=== PATIENT | male | born 1955 | race African-American/Black ===

== ENCOUNTER 2016-02-20 10:35 | Inpatient (IN) ==
[2016-02-20] MEDS ORDERED: METOPROLOL TARTRATE 5 MG/5 ML VIAL IV STA (10:47)
[2016-02-20] MEDS ORDERED: METOPROLOL TARTRATE 5 MG/5 ML VIAL IV ONE (10:47)
[2016-02-20] MEDS ORDERED: DILTIAZEM 50 MG/10 ML VIAL IV STA (10:56)
[2016-02-20] MEDS ORDERED: DILTIAZEM 50 MG/10 ML VIAL IV ONE (10:57)
[2016-02-20] MEDS ORDERED: DILTIAZEM 100 MG VIAL.ADD IV ONE (10:58)
[2016-02-20 11:01] LABS: Basophils # 0.1 10*3/uL (0.0-0.2); Basophils % 0.8 % (0.0-0.8); Eosinophils # 0.3 10*3/uL (0.0-0.87); Eosinophils % 3.1 % (0.00-10.9); Hematocrit 38.7 VOL% (42.0-52.0); Hemoglobin 12.9 GM/DL (14.0-18.0); Immature Granulocytes % 0.2 %; Immature Granulocytes Absolute 0.02 #; Lymphocytes # 4.3 10*3/uL (1.4-4.0); Lymphocytes % 48.9 % (21.2-54.2); Mean Corpuscular HGB Conc 33.3 GM/DL (32-36); Mean Corpuscular Hemoglobin 30 PG (27-34); Mean Corpuscular Volume 90.4 FL (87-102); Mean Platelet Volume 8.9 FL (9.6-12.0); Monocytes # 0.6 10*3/uL (0.11-0.8); Monocytes % 6.7 % (1.7-12.7); Neutrophils # 3.5 10*3/uL (1.4-7.4); Neutrophils % 40.3 % (38.7-73.9); Platelet Count 258 10*3/uL (130-400); Red Blood Count 4.28 10*6/uL (3.8-5.5); Red Cell Distribution Width 13.6 % (9.3-17.3); White Blood Count 8.7 10*3/uL (4.5-13.71)
[2016-02-20] MEDS: DILTIAZEM INJ 100 MG in SODIUM CHLORIDE 0.9% 100 ML IV SCH (11:05)
[2016-02-20 11:43] LABS: Blood Urea Nitrogen 9 MG/DL (7-18); Calcium 8.3 MG/DL (8.5-10.1); Free T4 (Free Thyroxine) 1.05 NG/DL (0.76-1.46); Glucose 155 MG/DL (74-106); Magnesium 1.7 MG/DL (1.8-2.4); Osmolality,Calculated 282.3 MOS/KG (273-304); Potassium 3.2 MMOL/L (3.5-5.1); Sodium 141 MMOL/L (136-145); Troponin I Only 0.045 NG/ML (0.00-0.045)
[2016-02-20] MEDS ORDERED: MAGNESIUM SULF RIDER 2 GM in PREMIX 1 EACH IV STA (11:45)
--- NOTE | 2016-02-20 11:51 | Emergency Department Note ---
Gabe Koch Brittany, am scribing for, and in the presence of, Ernst Linares MD 10 :53. Vijay Koch Hans, MD, personally performed the services described in this documentation, ascribed by Catherine Bernal in my presence, and it is both accurate and complete . Arrival - Arrival Chief Complaint: Arrhythmia/Palpitations ED Nursing Triage Note: c/o dizzy and increased heart rate Mode of Arrival: Stretcher Limitations: No Limitations Source: Patient, RN Notes Reviewed Time Seen by Provider: 02/20/16 10:40 - History of Present Illness HPI Narrative: Patient is a 60 y/o black male presenting to the ED by EMS with c/o dizziness, headache, and increased heart rate with an onset of this morning. Patient states that symptoms onset after eating a bologna sandwich this morning. He notes having some associated SOB, but denies having any chest pain, diaphoresis , abdominal pain, diarrhea, or bilateral leg swelling with this. In room patient 's heart rate is 188 beats per minute. Patient admits to being a current everyday smoker. He has no other complaint/pain. Patient has a past medical history of Prostate Problems. Review of System - Review of System 12 point system: reviewed and no additional remarkable complaints except as stated - Review of System Constitutional: Absent: diaphoresis Respiratory: Present: respiratory distress Cardiovascular: Present: palpitations. Absent: chest pain Gastrointestinal: Absent: abdominal pain, diarrhea Neurological: Present: other (dizziness) Medical,Surgical,& Family Hx - Medical History Genitourinary: History of: Prostate Problems - Social History Smoking Status: Unknown if ever smoked Frequency of Alcohol Use: Unknown Type of Drug Use: Unknown Exam Vital Signs: Vital Signs Temperature 98.0 F 02/20/16 10:40 Pulse Rate 191 H 02/20/16 10:40 Respiratory Rate 16 02/20/16 11:34 Blood Pressure 113/71 02/20/16 10:40 O2 Sat by Pulse Oximetry 97 02/20/16 10:40 - General General appearance: alert, in no apparent distress - Head Head exam: Present: atraumatic, normocephalic - Eye Eye exam: Present: PERRL, EOMI - ENT ENT exam: Present: mucous membranes moist, TM's normal bilaterally - Neck Neck exam: Present: full ROM, trachea midline. Absent: tenderness - Chest Chest inspection: Present: symmetric chest wall rise. Absent: tenderness - Respiratory Respiratory exam: Present: normal lung sounds bilaterally. Absent: rales, rhonchi, wheezes - Cardiovascular Cardiovascular exam: Present: normal rhythm, tachycardia, normal heart sounds. Absent: regular rate (irregular), murmur, rubs, gallop - Abdominal Exam Abdominal exam: Present: soft, normal bowel sounds. Absent: distention, tenderness - Extremities Exam Extremities exam: Present: full ROM. Absent: tenderness, pedal edema - Back Exam Back exam: Present: full ROM. Absent: tenderness - Neurological Exam Neurological exam: Present: alert, oriented X3, CN II-XII intact, normal gait, reflexes normal. Absent: motor sensory deficit - Psychiatric Psychiatric exam: Present: normal affect, normal mood - Skin Skin exam: Present: warm, dry, intact, normal color Course Course Narrative: This patient was evaluated with EKG, chest x-ray, and blood work which basically revealed some ST depressions on his RVR was in the 180s and it seemed to resolve on his 5-lead EKG on the monitor. His troponin was negative and his electrolytes demonstrated a slight hypokalemia and hypomagnesemia which we corrected in the ER. His white blood cell count was normal and his hemoglobin was also normal. We placed him on a Cardizem drip after 1 dose of Lopressor failed to resolve his RVR. I discussed his care with the hospitalist who agreed to come and see the patient for admission and we were actually able to turn off his Cardizem drip intermittently but it looks like he still in A. fib and a repeat EKG is pending. Results - Labs CBC & BMP: 02/20/16 10:55 02/20/16 10:55 Disposition Clinical Impression: Palpitations, Atrial fibrillation Case discussed with: patient Disposition: Still a Patient Condition: Guarded Instructions: Atrial Fibrillation (ED) Time of Disposition: 11:51
[2016-02-20] MEDS ORDERED: POTASSIUM CHLORIDE RIDER 100 ML IV ONE (12:05)
[2016-02-20] MEDS ORDERED: MAGNESIUM SULF RIDER 50 ML IV ONE (12:06)
--- NOTE | 2016-02-20 13:15 | XRay Report ---
Portable chest Date:[02/20/2016] Clinical history: Tachycardia Comparison: None Technique: Portable AP sitting chest Findings: The heart is minimally enlarged with calcification in the aortic knob. Calcified granulomata/nodes with minimal fluid in the right minor fissure. Unremarkable mediastinum with degenerative changes. Impression: Minimal cardiomegaly with evidence of old granulomatous disease. Minimal fluid in the right minor fissure. PROCEDURE INTERPRETED AT [facility] DEPARTMENT OF RADIOLOGY Final Report Signed by: Dr. Jeni Matthew
--- NOTE | 2016-02-20 13:36 | EKG Report ---
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
--- NOTE | 2016-02-20 13:50 | Hospitalist History & Physical ---
Assessment and Plan - Time spent with patient Time spent with patient: Greater than 30 minutes (due to assessment, plan and documentation) (1) New onset a-fib Status: Acute Assessment and plan: admit as inpt to telemetry Continue on Cardizem infusion consult cardiology routine labs and lipid panel in AM DVT prophylaxis potassium and MG replaced in ER PRN meds further plan and addendum to follow per Dr. Dobson Current Visit: Yes History of Present Illness Chief complaint: new onset Afib/RVR History of present illness: Mr. Degroot is a 60 year old male who presents to the Er today with palpitations , chest pain, dizziness and shortness of breath. He states shortly after he got up this morning he began to feel very bad and his heart was racing. He states he felt fine over the last few days, has not been sick. He was found to be in Afib on arrival to the ER with initial rate in the 150's. He was started on Cardizem infusion and rate is now controlled in 90s and he has converted to SR. He states he feels much better now. He denies every having afib before, denies previous medical history, denies surgical history. He does drink 2-3 beers daily , he states he does not think he will have DTs, educated him to watch for s/s. He also smokes about half a pack of cigarettes daily. Smoke marijuana once a week. At present he denies chest pain, fever, chills, cough, headache, shortness of breath, abdominal pain, n/v/d, dysuria or edema. Home Medications Medication Instructions Recorded Confirmed Type Tamsulosin [Flomax] 0.4 mg PO DAILY 02/20/16 02/20/16 History Allergies Allergy/AdvReac Type Severity Reaction Status Date / Time No Known Allergies Allergy Unverified 02/20/16 11:22 Medical,Surgical,& Family Hx - Medical History Genitourinary: History of: Prostate Problems - Social History Smoking Status: Unknown if ever smoked Frequency of Alcohol Use: Unknown Type of Drug Use: Unknown 12 point system: reviewed and no additional remarkable complaints except as stated Exam - Constitutional Vitals: Period Temp Pulse Resp BP Sys/Bae Pulse Ox Last 24 Hr 98.0 F-98.0 F 191-191 16-18 113-113/71-71 97 General appearance: no acute distress - Head Head exam: Present: normal inspection, normocephalic - Eye Eye exam: Present: EOMI. Absent: scleral icterus Pupils: Present: JOHNNIE, normal accommodation - ENT ENT exam: Present: normal exam, normal oropharynx - Neck Neck exam: Present: normal inspection. Absent: lymphadenopathy - Respiratory Respiratory exam: Present: clear to auscultation bilaterally. Absent: wheezes - Cardiovascular Cardiovascular exam: Present: regular rate and rhythm. Absent: tachycardia - GI/Abdominal GI/Abdominal exam: Present: normal bowel sounds, soft. Absent: tenderness - Extremities Exam Extremities exam: Present: normal inspection, full ROM. Absent: edema - Back Exam Back exam: Present: normal inspection. Absent: muscle spasm - Neurological Exam Neurological exam: Present: alert, oriented X3 - Psychiatric Psychiatric exam: Present: normal affect, normal mood - Skin Skin exam: Present: normal color, warm, dry Results - Labs CBC & BMP: 02/20/16 10:55 02/20/16 10:55 Lab Results: I have reviewed the past 24 hour labs
[2016-02-20] MEDS: POTASSIUM CHLORIDE RIDER 10 MEQ in PREMIX 1 EACH IV SCH ×7 (15:40→23:28)
[2016-02-21 01:09] LABS: Basophils # 0.1 10*3/uL (0.0-0.2); Basophils % 0.7 % (0.0-0.8); Eosinophils # 0.3 10*3/uL (0.0-0.87); Eosinophils % 3.7 % (0.00-10.9); Hematocrit 39.3 VOL% (42.0-52.0); Immature Granulocytes % 0.1 %; Immature Granulocytes Absolute 0.01 #; Lymphocytes # 4.6 10*3/uL (1.4-4.0); Lymphocytes % 53.1 % (21.2-54.2); Mean Corpuscular HGB Conc 33.1 GM/DL (32-36); Mean Corpuscular Hemoglobin 30 PG (27-34); Mean Corpuscular Volume 89.1 FL (87-102); Mean Platelet Volume 9.7 FL (9.6-12.0); Monocytes # 0.6 10*3/uL (0.11-0.8); Monocytes % 6.9 % (1.7-12.7); Neutrophils # 3.1 10*3/uL (1.4-7.4); Neutrophils % 35.5 % (38.7-73.9); Platelet Count 266 10*3/uL (130-400); Red Blood Count 4.41 10*6/uL (3.8-5.5); Red Cell Distribution Width 13.4 % (9.3-17.3); White Blood Count 8.7 10*3/uL (4.5-13.71)
[2016-02-21 01:40] LABS: Calcium 8.5 MG/DL (8.5-10.1); Osmolality,Calculated 280.1 MOS/KG (273-304); Potassium 4.1 MMOL/L (3.5-5.1); Risk Ratio 3.36; VLDL CHOLESTEROL 22.4 MG/DL
[2016-02-21 04:52] LABS: Band Neutrophils 3 % (0-10); Eosinophils 2 % (0-10); Hypochromasia 2+; Lymphocytes 51 % (20-55); Platelet Estimate Normal; Segmented Neutrophils 37 % (50-85); Total Cells Counted 100
--- NOTE | 2016-02-21 06:52 | EKG Report ---
Stationary ECG Study [facility] ER Test Date: 02/20/2016 11:52:22 AM Pat Name: THEE GUERRIER Department: Room: 281 Gender: M University Professor: LEW ZULETA RN : 1955 Requested by: Ernst Linares Order Number: [id number] Reading MD: YOGESH ARRIOLA Intervals [place] Rate: 93 P: 72 VT: 131 QRS: 27 QRSD: 88 T: 33 QT: 362 QTc: 412 Interpretive Statements SINUS RHYTHM Electronically Signed On 02-21-16 07:07:47 AWNING FINISHER by YOGESH ARRIOLA [email or web address]
--- NOTE | 2016-02-21 11:24 | ECHO Report ---
Sabino Degroot Exam Date: 02/21/2016 11:02 Referring Physician: Technologist: Age: 60 Ht (in): Wt (lb): Gender: M Exam Location: [facility] Echo Indications: BP: / HR: Rhythm: Sinus Technical Quality: IMPRESSIONS Left ventricular ejection fraction appears to be 45-50%. Mild left atrial enlargement. Mild mitral valve leaflet thickening with trace mitral regurgitation. Trace tricuspid regurgitation. MEASUREMENTS (Male / Female) Normal Values 2D ECHO LV Diastolic Diameter PLAX 4.4 cm 4.2 - 5.9 / 3.9 - 5.3 cm LV Systolic Diameter PLAX 2.8 cm LV Fractional Shortening PLAX 36.4 % IVS Diastolic Thickness 1.1 cm 0.6 - 1.0 / 0.6 - 0.9 cm LVPW Diastolic Thickness 1.1 cm 0.6 - 1.0 / 0.6 - 0.9 cm RV Internal Dim ED PLAX 3.0 cm Aortic Root Diameter 3.3 cm LA Systolic Diameter LX 3.1 cm 3.0 - 4.0 / 2.7 - 3.8 cm DOPPLER TR Peak Velocity 254.0 cm/s TR Peak Gradient 25.8 mmHg FINDINGS Left Ventricle Normal left ventricular wall thickness and size. Left ventricular ejection fraction appears to be 45-50%. Right Ventricle Normal size and function. Right Atrium Normal size and function. Left Atrium Mild left atrial enlargement. Mitral Valve Mild mitral valve leaflet thickening with trace mitral regurgitation. Aortic Valve Aortic valve appears to be structurally normal. Tricuspid Valve Structurally normal with trace tricuspid regurgitation. Pulmonic Valve Pericardium No evidence of pericardial effusion or other abnormality. Aorta Aorta appears normal. David Weston (Electronically Signed) Final Date: 21 February 2016 11:23
--- NOTE | 2016-02-21 11:37 | Cardiology Consult Note ---
Assessment and Plan (1) New onset a-fib Status: Acute Assessment and plan: The patient has converted back to sinus rhythm. His potassium was low on arrival which is likely a factor. I will review and adjust his medications to try to maintain sinus rhythm. Current Visit: Yes (2) Abnormal cardiac enzyme level Status: Acute Assessment and plan: The patient has a slight bump in his cardiac enzymes, which may simply be a supply demand ischemia from having A. fib. However, he doesn't have any previous known history of coronary artery disease, and his left ventricular ejection fraction appears mildly reduced on echo. I really think he would be best served by cardiac catheterization for definitive coronary artery assessment. I discussed the risks, alternatives, and benefits with the patient today who understands and wishes to proceed. I'm going to schedule this test for Tuesday. Current Visit: Yes (3) Cardiomyopathy Status: Acute Current Visit: Yes (4) Tobacco abuse Status: Acute Current Visit: Yes (5) Palpitations Status: Acute Current Visit: Yes History of Present Illness - Consult Narrative History of present illness: Mr. Degroot is a 60 year old male who denies any significant past medical history. He came to the hospital after having acute onset of severe palpitations. This was associated with some mild dyspnea. He felt somewhat lightheaded. There were no particular exacerbating or alleviating factors. He denies any previous history of palpitations or tachycardia. He denies any previous cardiac history. He did not experience any chest pain or radiation of symptoms. He does not have any diaphoresis, or other associated symptoms. When he got to the emergency room he was found to be in atrial fibrillation with rapid ventricular response heart rates in the 150s. He was started on a diltiazem infusion which got his rate controlled and he subsequently converted back to normal sinus rhythm. He is essentially feeling back to normal at this time. He denies any fever, chills, or cough. He has no orthopnea, PND, or peripheral edema. He has no previous history of coronary artery disease, congestive heart failure, or arrhythmia. His only real medical problem is of prostate hypertrophy. He was being treated with an antibiotic and is also on Flomax for his prostate. The patient does have a history of smoking. He also drinks several drinks a day. CC: Sabrina Dobson MD - Home Medications and Allergies Home Medications: Home Medications Medication Instructions Recorded Confirmed Type Tamsulosin [Flomax] 0.4 mg PO DAILY 02/20/16 02/20/16 History Allergies/Adverse Reactions: Allergies Allergy/AdvReac Type Severity Reaction Status Date / Time No Known Allergies Allergy Unverified 02/20/16 11:22 12 point system: reviewed and no additional remarkable complaints except as stated Medical,Surgical,& Family Hx - Medical History Cardio: History of: Cardiac Dysrhythmia (afib) Genitourinary: History of: Prostate Problems - Surgical History Orthopedic Surgeries: Surgical HX of;: Orthopedic Surgery (ORIF BL legs) - Family History Family History: Reports;: Family Heart Disease, Family Hypertension - Social History Smoking Status: Unknown if ever smoked Frequency of Alcohol Use: Unknown Type of Drug Use: Unknown Physical Examination Vital Signs Temp Pulse Resp BP Pulse Ox 98.0 F 191 H 18 113/71 97 02/20/16 10:40 02/20/16 10:40 02/20/16 10:40 02/20/16 10:40 02/20/16 10:40 Other: General: Appears well developed, well nourished, no apparent distress HEENT: Normocephalic, atraumatic Neck: Supple Neck, Midline Trachea, No Bruit, No JVD Cardiac: Reg Rate and Rhythm, No Murmur, no gallop, no rub Lungs: Clear to auscultation, No Wheeze, Rales, Rhonchi Neuro: Cranial Nerve 2-12 Intact, Motor Function Grossly Intact Abdomen: Soft, Active Bowel Sounds, No Masses, No Pulsations/Bruits Skin: Normal color, no rash Extremities: No Clubbing, No Cyanosis, No Edema, Normal Upper Extr. Pulses Musculoskeletal: No acute abnormality noted Psychiatric: The patient does not appear to be anxious or depressed Result/EKG - Labs CBC & BMP: 02/21/16 00:15 02/21/16 00:15 Lab Results: I have reviewed the past 24 hour labs Labs: Laboratory Results - last 24 hr 02/20/16 02/21/16 02/21/16 18:04 00:15 00:15 WBC 8.7 RBC 4.41 Hgb 13.0 L Hct 39.3 L MCV 89.1 MCH 30 MCHC 33.1 RDW 13.4 Plt Count 266 MPV 9.7 Neut % (Auto) 35.5 L Lymph % (Auto) 53.1 [place] % (Auto) 6.9 Eos % (Auto) 3.7 Baso % (Auto) 0.7 Neut # (Auto) 3.1 Lymph # (Auto) 4.6 H [place] # (Auto) 0.6 Eos # (Auto) 0.3 Baso # (Auto) 0.1 Total Counted 100 Immature Gran % 0.1 Nucleated RBC % 0.0 Immature Gran # 0.01 Segmented Neutrophils 37 L Band Neutrophils 3 Lymphocytes 51 Monocytes 6 Eosinophils 2 Basophils 1.0 H Nucleated RBCs # 0.00 Platelet Estimate Normal Hypochromasia 2+ Sodium Potassium Chloride Carbon Dioxide Anion Gap BUN Creatinine GFR Calculation BUN/Creatinine Ratio Glucose Calculated Osmolality Calcium Troponin I 0.722 H D 0.754 H Triglycerides Cholesterol LDL Cholesterol VLDL Cholesterol HDL Cholesterol Heart Disease Risk Ratio 02/21/16 02/21/16 00:15 02:38 WBC RBC Hgb Hct MCV MCH MCHC RDW Plt Count MPV Neut % (Auto) Lymph % (Auto) [place] % (Auto) Eos % (Auto) Baso % (Auto) Neut # (Auto) Lymph # (Auto) [place] # (Auto) Eos # (Auto) Baso # (Auto) Total Counted Immature Gran % Nucleated RBC % Immature Gran # Segmented Neutrophils Band Neutrophils Lymphocytes Monocytes Eosinophils Basophils Nucleated RBCs # Platelet Estimate Hypochromasia Sodium 142 Potassium 4.1 Chloride 108 H Carbon Dioxide 25 Anion Gap 13.1 BUN 7 Creatinine 0.90 GFR Calculation 116 BUN/Creatinine Ratio 7.00 Glucose 97 Calculated Osmolality 280.1 Calcium 8.5 Troponin I 0.768 H Triglycerides 112 Cholesterol 185 LDL Cholesterol 113.0 VLDL Cholesterol 22.4 HDL Cholesterol 55 Heart Disease Risk Ratio 3.36 - EKG EKG results: interpreted by me Specialty Discharge - Follow Up or Referrals
[2016-02-21] MEDS ORDERED: MAGNESIUM SULF RIDER 2 GM in PREMIX 1 EACH IV PRN (11:40)
[2016-02-21] MEDS ORDERED: POTASSIUM CHLORIDE RIDER 10 MEQ in PREMIX 1 EACH IV PRN (11:40)
[2016-02-21] MEDS: DILTIAZEM CD 120 MG CAPSULE PO SCH (11:56)
[2016-02-21] MEDS: ASPIRIN CHEW 81 MG TABLET PO SCH (11:56)
[2016-02-21] MEDS: ASCORBIC ACID 500 MG TABLET PO SCH ×2 (11:56→20:51)
[2016-02-21] MEDS: DILTIAZEM INJ 100 MG in SODIUM CHLORIDE 0.9% 100 ML IV SCH (12:00)
[2016-02-21] MEDS: NICOTINE 14 MG/24 HR PATCH TRANSDERM SCH (15:16)
--- NOTE | 2016-02-21 16:02 | Hospitalist Progress Note ---
Assessment and Plan - Time spent with patient Time spent with patient: Greater than 30 minutes (1) Abnormal cardiac enzyme level Status: Acute Assessment and plan: Troponins elevated, in light of chest pain and cardiac risk factors, patient will be catheterized on tuesday. Current Visit: Yes (2) New onset a-fib Status: Acute Assessment and plan: Continue current management. Current Visit: Yes (3) Tobacco abuse Status: Acute Assessment and plan: Tobacco patch. Current Visit: Yes (4) Cardiomyopathy Status: Acute Assessment and plan: Echo revealed EF 45-50%. Stable. Current Visit: Yes Hospitalist: Subjective Interval history: No complaints, no overnight events. Denies any chest pain currently. Exam - Constitutional Vitals: Period Temp Pulse Resp BP Sys/Bae Pulse Ox Last 24 Hr 97 F-98.5 F 59-77 18-20 126-147/81-98 98-100 General appearance: no acute distress - Head Head exam: Present: normocephalic, atraumatic - Eye Eye exam: Present: EOMI Pupils: Present: JOHNNIE - ENT ENT exam: Present: normal exam - Neck Neck exam: Present: normal inspection - Respiratory Respiratory exam: Present: clear to auscultation bilaterally. Absent: rhonchi, wheezes - Cardiovascular Cardiovascular exam: Present: regular rate and rhythm. Absent: gallop, rubs, systolic murmur - GI/Abdominal GI/Abdominal exam: Present: normal bowel sounds, soft. Absent: distended, firm , guarding, tenderness, rebound - Extremities Exam Extremities exam: Present: normal inspection. Absent: calf tenderness, edema Results - Labs CBC & BMP: 02/21/16 00:15 02/21/16 00:15 Lab Results: I have reviewed the past 24 hour labs Specialty Discharge - Follow Up or Referrals
[2016-02-22] MEDS: ASPIRIN CHEW 81 MG TABLET PO SCH (09:04)
[2016-02-22] MEDS: ASCORBIC ACID 500 MG TABLET PO SCH ×2 (09:06→20:41)
[2016-02-22] MEDS: DILTIAZEM CD 120 MG CAPSULE PO SCH (09:07)
[2016-02-22] MEDS: NICOTINE 14 MG/24 HR PATCH TRANSDERM SCH (09:07)
--- NOTE | 2016-02-22 10:28 | Cardiology Progress Note ---
Assessment and Plan (1) New onset a-fib Status: Acute Assessment and plan: The patient has converted back to sinus rhythm. His potassium was low on arrival which is likely a factor. I have adjusted his medicines to try to maintain sinus rhythm. Current Visit: Yes (2) Abnormal cardiac enzyme level Status: Acute Assessment and plan: The patient has a slight bump in his cardiac enzymes, which may simply be a supply demand ischemia from having A. fib. However, he doesn't have any previous known history of coronary artery disease, and his left ventricular ejection fraction appears mildly reduced on echo. I really think he would be best served by cardiac catheterization for definitive coronary artery assessment. I discussed the risks, alternatives, and benefits with the patient who understands and wishes to proceed. The heart cath is scheduled tomorrow. Current Visit: Yes (3) Cardiomyopathy Status: Acute Current Visit: Yes (4) Tobacco abuse Status: Acute Current Visit: Yes (5) Palpitations Status: Acute Current Visit: Yes Cardiology - PN: Subj Interval history: The patient is feeling well this morning. He has not had any further chest pain symptoms. He remains in normal sinus rhythm. He has no palpitations orthopnea or PND. We once again discussed cardiac catheterization which is planned for tomorrow morning. He is still agreeable. Current Medications Ascorbic Acid (Vitamin C Tab) 1,000 mg PO BID [facility] Last Admin: 02/22/16 09:06 Dose: 1,000 mg Aspirin () 81 mg PO DAILY [facility] Last Admin: 02/22/16 09:04 Dose: 81 mg Diazepam (Valium Tab) 5 mg PO PREOP ONE Stop: 02/23/16 06:01 Diltiazem HCl (Cardizem Cd) 120 mg PO DAILY [facility] Last Admin: 02/22/16 09:07 Dose: 120 mg Diphenhydramine HCl (Benadryl Cap) 50 mg PO PREOP ONE Stop: 02/23/16 06:01 Diltiazem HCl 100 mg/ Sodium (Chloride) 100 mls @ 5 mls/hr IV TITRATE KIRSTIE; 5 MG /HR PRN Reason: Protocol Last Admin: 02/21/16 12:00 Dose: Not Given Magnesium Sulfate 2 gm/ Premix 50 mls @ 25 mls/hr IV ONCE PRN PRN Reason: Magnesium less than 1.8 Potassium Chloride 10 meq/ (Premix) 100 mls @ 100 mls/hr IV Q1H PRN PRN Reason: Potassium less than 3.5 Nicotine (Nicoderm Cq 14) 1 patch TRANSDERM DAILY KIRSTIE Last Admin: 02/22/16 09:07 Dose: 1 patch Exam (Progress Note) - Constitutional Vitals: Period Temp Pulse Resp BP Sys/Bae Pulse Ox Last 24 Hr 97 F-98.5 F 59-86 16-20 125-147/84-99 98-100 Exam: General: Appears well developed, well nourished, no apparent distress HEENT: Normocephalic, atraumatic Neck: Supple Neck, Midline Trachea, No Bruit, No JVD Cardiac: Reg Rate and Rhythm, No Murmur, no gallop, no rub Lungs: Clear to auscultation, No Wheeze, Rales, Rhonchi Neuro: Cranial Nerve 2-12 Intact, Motor Function Grossly Intact Abdomen: Soft, Active Bowel Sounds, No Masses, No Pulsations/Bruits Skin: Normal color, no rash Extremities: No Clubbing, No Cyanosis, No Edema, Normal Upper Extr. Pulses Musculoskeletal: No acute abnormality noted Psychiatric: The patient does not appear to be anxious or depressed Result/EKG - Labs CBC & BMP: 02/21/16 00:15 02/21/16 00:15 Lab Results: I have reviewed the past 24 hour labs - EKG EKG results: interpreted by me Specialty Discharge - Follow Up or Referrals
[2016-02-22] MEDS: DILTIAZEM INJ 100 MG in SODIUM CHLORIDE 0.9% 100 ML IV SCH (13:22)
--- NOTE | 2016-02-22 14:14 | Hospitalist Progress Note ---
Assessment and Plan - Time spent with patient Time spent with patient: Greater than 30 minutes (1) Abnormal cardiac enzyme level Status: Acute Assessment and plan: Troponins elevated, in light of chest pain and cardiac risk factors, patient will be catheterized on tuesday. Current Visit: Yes (2) New onset a-fib Status: Acute Assessment and plan: Continue current management. Current Visit: Yes (3) Tobacco abuse Status: Acute Assessment and plan: Tobacco patch. Current Visit: Yes (4) Cardiomyopathy Status: Acute Assessment and plan: Echo revealed EF 45-50%. Stable. Current Visit: Yes Hospitalist: Subjective Interval history: No complaints, no overnight events. Denies chest pain. Exam - Constitutional Vitals: Period Temp Pulse Resp BP Sys/Bae Pulse Ox Last 24 Hr 97 F-98.6 F 64-86 16-20 125-142/84-99 98-100 General appearance: no acute distress - Head Head exam: Present: normocephalic, atraumatic - Eye Eye exam: Present: EOMI Pupils: Present: JOHNNIE - ENT ENT exam: Present: normal exam - Neck Neck exam: Present: normal inspection - Respiratory Respiratory exam: Present: clear to auscultation bilaterally. Absent: rhonchi, wheezes - Cardiovascular Cardiovascular exam: Present: regular rate and rhythm. Absent: gallop, rubs, systolic murmur - GI/Abdominal GI/Abdominal exam: Present: normal bowel sounds, soft. Absent: distended, firm , guarding, tenderness, rebound - Extremities Exam Extremities exam: Present: normal inspection. Absent: calf tenderness, edema Results - Labs CBC & BMP: 02/21/16 00:15 02/21/16 00:15 Lab Results: I have reviewed the past 24 hour labs Specialty Discharge - Follow Up or Referrals
[2016-02-23 05:55] LABS: Basophils % 0.6 % (0.0-0.8); Eosinophils # 0.2 10*3/uL (0.0-0.87); Eosinophils % 3.2 % (0.00-10.9); Hematocrit 42.1 VOL% (42.0-52.0); Hemoglobin 13.8 GM/DL (14.0-18.0); Immature Granulocytes % 0.3 %; Immature Granulocytes Absolute 0.02 #; Lymphocytes % 55.2 % (21.2-54.2); Mean Corpuscular HGB Conc 32.8 GM/DL (32-36); Mean Corpuscular Hemoglobin 29 PG (27-34); Mean Corpuscular Volume 89.8 FL (87-102); Mean Platelet Volume 9.7 FL (9.6-12.0); Monocytes # 0.6 10*3/uL (0.11-0.8); Monocytes % 7.6 % (1.7-12.7); Neutrophils # 2.4 10*3/uL (1.4-7.4); Neutrophils % 33.1 % (38.7-73.9); Platelet Count 281 10*3/uL (130-400); Red Blood Count 4.69 10*6/uL (3.8-5.5); Red Cell Distribution Width 13.2 % (9.3-17.3); White Blood Count 7.2 10*3/uL (4.5-13.71)
[2016-02-23] MEDS ORDERED: DIAZEPAM 5 MG TABLET PO ONE (06:00)
[2016-02-23] MEDS ORDERED: diphenhydrAMINE CAP 25 MG CAPSULE PO ONE (06:00)
[2016-02-23 06:17] LABS: Calcium 9.1 MG/DL (8.5-10.1); Osmolality,Calculated 284.8 MOS/KG (273-304); Potassium 4.1 MMOL/L (3.5-5.1)
[2016-02-23 06:38] LABS: Eosinophils 2 % (0-10); Lymphocytes 59 % (20-55); Platelet Estimate Normal; Segmented Neutrophils 32 % (50-85); Total Cells Counted 100
[2016-02-23 06:39] LABS: Hypochromasia 1+
[2016-02-23] MEDS: DILTIAZEM CD 120 MG CAPSULE PO SCH (09:05)
[2016-02-23] MEDS: ASCORBIC ACID 500 MG TABLET PO SCH (09:05)
[2016-02-23] MEDS: ASPIRIN CHEW 81 MG TABLET PO SCH (09:06)
[2016-02-23] MEDS: NICOTINE 14 MG/24 HR PATCH TRANSDERM SCH (09:07)
[2016-02-23] MEDS ORDERED: HEPARIN/NACL 0.9% 2 UNITS/ML 1,000 ML IV ONE (09:12)
[2016-02-23] MEDS ORDERED: LIDOCAINE 1% 20 ML VIAL ONE (09:12)
[2016-02-23] MEDS ORDERED: HYDROmorphone 2 MG/1 ML VIAL ONE (09:41)
[2016-02-23] MEDS ORDERED: MIDAZOLAM 2 MG/2 ML VIAL ONE (09:41)
[2016-02-23] MEDS ORDERED: NITROGLYCERIN DRIP 50 MG/250 ML BOTTLE IV ONE (09:49)
[2016-02-23] MEDS ORDERED: VERAPAMIL 5 MG/2 ML VIAL ONE (09:50)
[2016-02-23] MEDS ORDERED: ENOXAPARIN 30 MG/0.3 ML SYRINGE ONE (10:00)
--- NOTE | 2016-02-23 10:21 | Cardiac Catheterization ---
Date of Procedure:: 02/23/16 Procedure: CLINICAL HISTORY: Please see the H&P. The patient presented with atrial fibrillation with rapid ventricular response and also had mildly abnormal cardiac enzymes. He is undergoing cardiac catheterization for definitive coronary artery assessment and possible revascularization. PROCEDURES PERFORMED: 1. Right radial percutaneous arteriotomy 2. Left heart catheterization 3. Resting hemodynamics 4. Left ventriculography. 5. Coronary arteriography 6. Hemoband placement DESCRIPTION OF PROCEDURE: After obtaining informed consent, the patient was taken to the lab head, prepped and draped in the usual sterile manner. We accessed the right radial artery using modified Seldinger technique in the usual fashion. We placed a 6-Malay slim sheath without difficulty. We then used a Tig catheter to engage the right coronary and left main coronary arteries to perform angiography in multiple orthogonal views. There were no problems or complications during the procedure. We then used an angled pigtail catheter to perform a left heart catheterization with left ventriculogram and pressure measurement in the usual fashion. After removing the catheter, we placed a HemoBand and removed the sheath without difficulty. There were no problems during the case. HEMODYNAMICS: Please see the accompanying data sheet. CORONARIES: The left main coronary artery is a trifurcates into the left anterior descending left circumflex flex, and ramus intermedius branches. The left main coronary artery is angiographically free of significant obstructive disease. The Ramus intermedius is a small caliber vessel which courses over the anterolateral wall. It is angiographically free of significant obstructive disease. The left circumflex coronary artery is a moderate size vessel which gives off a to large obtuse marginal branch. There are diffuse luminal irregularities of up to 40% in the left circumflex system but this does not appear to be high- grade/flow limiting. The left anterior descending is a large-caliber vessel which gives off 2 moderate-sized diagonal branches. There is some mild luminal irregularities in left anterior descending artery but this does not appear to be flow limiting. The second diagonal branch has a long area of around 50% stenosis in its midsegment. The right coronary artery is a moderate size vessel which gives off the posterior descending artery and a posterolateral system. The proximal portion of the vessel is quite tortuous. There are diffuse luminal irregularities throughout the right coronary artery with a maximal stenosis of around 50% in the proximal vessel. However, none of this appears to be flow limiting. LEFT VENTRICULOGRAPHY: Left ventriculogram shows left ventricular ejection fraction of approximately 55-60% with normal regional wall motion. IMPRESSION: 1. Mild nonobstructive coronary artery disease as described above. 2. Preserved left ventricular systolic function. PLAN: I don't see any high-grade disease in need of revascularization at this time. I think the patient slight cardiac enzyme bump was related to his prolonged A. fib with RVR. At this point, I think we would manage him with medical therapy and rate/rhythm control. From my standpoint he could be discharged home later today. I would like to follow-up with him in a week or 2. Anesthesia: minimal conscious sedation Surgeon / Physician: David Weston Estimated blood loss: minimal Condition: stable Disposition: floor - Medications / Follow-up
--- NOTE | 2016-02-23 10:24 | Cardiology Progress Note ---
Assessment and Plan (1) New onset a-fib Status: Acute Assessment and plan: The patient has converted back to sinus rhythm. His potassium was low on arrival which is likely a factor. I have adjusted his medicines to try to maintain sinus rhythm. From my standpoint, he could be discharged home on his current medical regimen. I would like to follow-up with him in a week or 2. Current Visit: Yes (2) Abnormal cardiac enzyme level Status: Acute Assessment and plan: The patient has a slight bump in his cardiac enzymes, which appears to be secondary to a supply demand ischemia from having A. fib with rapid ventricular response. Cardiac catheterization does not demonstrate any high-grade coronary artery disease in need of revascularization, though he does have some mild nonobstructive disease which we can manage medically. I think he can be discharged home later today with outpatient management. Current Visit: Yes (3) Tobacco abuse Status: Acute Assessment and plan: Smoking cessation was addressed during his hospital stay. Current Visit: Yes Cardiology - PN: Subj Interval history: The patient did well overnight. There have been no further arrhythmias. He has no cardiac complaints today. We took him to cardiac catheterization today. This showed some mild nonobstructive coronary artery disease. His left ventricular systolic function was normal. I think his mild and cardiac enzymes was secondary to the A. fib with RVR. For now I think his best treatment option is medical management and rate/rhythm control. Current Medications Ascorbic Acid (Vitamin C Tab) 1,000 mg PO BID [facility] Last Admin: 02/23/16 09:05 Dose: 1,000 mg Aspirin () 81 mg PO DAILY [facility] Last Admin: 02/23/16 09:06 Dose: 81 mg Diltiazem HCl (Cardizem Cd) 120 mg PO DAILY [facility] Last Admin: 02/23/16 09:05 Dose: 120 mg Diltiazem HCl 100 mg/ Sodium (Chloride) 100 mls @ 5 mls/hr IV TITRATE KIRSTIE; 5 MG /HR PRN Reason: Protocol Last Admin: 02/22/16 13:22 Dose: Not Given Magnesium Sulfate 2 gm/ Premix 50 mls @ 25 mls/hr IV ONCE PRN PRN Reason: Magnesium less than 1.8 Potassium Chloride 10 meq/ (Premix) 100 mls @ 100 mls/hr IV Q1H PRN PRN Reason: Potassium less than 3.5 Nicotine (Nicoderm Cq 14) 1 patch TRANSDERM DAILY KIRSTIE Last Admin: 02/23/16 09:07 Dose: 1 patch Exam (Progress Note) - Constitutional Vitals: Period Temp Pulse Resp BP Sys/Bae Pulse Ox Last 24 Hr 97 F-98.6 F 65-80 18-20 127-138/86-94 92-99 Exam: General: Appears well developed, well nourished, no apparent distress HEENT: Normocephalic, atraumatic Neck: Supple Neck, Midline Trachea, No Bruit, No JVD Cardiac: Reg Rate and Rhythm, No Murmur, no gallop, no rub Lungs: Clear to auscultation, No Wheeze, Rales, Rhonchi Neuro: Cranial Nerve 2-12 Intact, Motor Function Grossly Intact Abdomen: Soft, Active Bowel Sounds, No Masses, No Pulsations/Bruits Skin: Normal color, no rash Extremities: No Clubbing, No Cyanosis, No Edema, Normal Upper Extr. Pulses Musculoskeletal: No acute abnormality noted Psychiatric: The patient does not appear to be anxious or depressed Result/EKG - Labs CBC & BMP: 02/23/16 05:02 02/23/16 05:02 Lab Results: I have reviewed the past 24 hour labs Labs: Laboratory Results - last 24 hr 02/23/16 02/23/16 05:02 05:02 WBC 7.2 RBC 4.69 Hgb 13.8 L Hct 42.1 MCV 89.8 MCH 29 MCHC 32.8 RDW 13.2 Plt Count 281 MPV 9.7 Neut % (Auto) 33.1 L Lymph % (Auto) 55.2 H [place] % (Auto) 7.6 Eos % (Auto) 3.2 Baso % (Auto) 0.6 Neut # (Auto) 2.4 Lymph # (Auto) 4.0 [place] # (Auto) 0.6 Eos # (Auto) 0.2 Baso # (Auto) 0.0 Total Counted 100 Immature Gran % 0.3 Nucleated RBC % 0.0 Immature Gran # 0.02 Segmented Neutrophils 32 L Lymphocytes 59 H Monocytes 7 Eosinophils 2 Nucleated RBCs # 0.00 Platelet Estimate Normal Hypochromasia 1+ Sodium 144 Potassium 4.1 Chloride 110 H Carbon Dioxide 24 Anion Gap 14.1 BUN 9 Creatinine 0.80 GFR Calculation 121 BUN/Creatinine Ratio 11.00 Glucose 97 Calculated Osmolality 284.8 Calcium 9.1 - EKG EKG results: interpreted by me Specialty Discharge - Follow Up or Referrals
[2016-02-23] MEDS: DILTIAZEM INJ 100 MG in SODIUM CHLORIDE 0.9% 100 ML IV SCH (10:53)
[2016-02-23] MEDS ORDERED: SODIUM CHLORIDE 0.9% 1,000 ML IV SCH (11:00)
--- NOTE | 2016-02-23 13:28 | Discharge Summary ---
Hospital Course - Hospital Course Hospital Course: Please see H&P for details surrounding admission. Coronary artery disease: Troponins were noted to be elevated at 0.045 2.7-2. He was taken to the [facility] and nonobstructive coronary artery disease was identified. Patient will be initiated on an aspirin and anti-cholesterol medication. Atrial fibrillation with RVR: Patient was managed with IV medications and switched to oral diltiazem. He'll be discharged with diltiazem and aspirin and will follow up with cardiology in 1-2 weeks. Hyperlipidemia: LDL was measured to be 113 patient will be started on Lipitor and continue this at discharge. - Time spent with patient Time with patient DS: Greater than 30 minutes Diagnosis - Discharge Diagnosis (1) Abnormal cardiac enzyme level Status: Acute (2) New onset a-fib Status: Acute (3) Tobacco abuse Status: Acute (4) Cardiomyopathy Status: Acute Specialty Discharge - Follow Up or Referrals Discharge Plan - Discharge Data Disposition: Disch To Home/Self Care Condition at Discharge: Stable Discharge Diet: heart healthy, low fat, low cholesterol - Discharge Medications New Aspirin Chew Tab 81 mg PO DAILY #30 tablet Diltiazem Cd Cap [Cardizem CD] 120 mg PO DAILY #30 capsule Atorvastatin [Lipitor] 20 mg PO DAILY #30 tablet Nicotine 14 mg/24 Hr Patch [Nicoderm CQ 14 mg/24 hr Patch] 1 patch TRANSDERM DAILY #30 patch Continue Ciprofloxacin Tab [Cipro Tab] 500 mg PO BID W/MEALS Tamsulosin [Flomax] 0.4 mg PO DAILY metroNIDAZOLE [Metronidazole Cap/Tab] 500 mg PO TID - Follow Up or Referral - Forms/Instructions Instructions: Atrial Fibrillation (ED) Exam - Constitutional Vitals: Period Temp Pulse Resp BP Sys/Bae Pulse Ox Last 24 Hr 97 F-98.5 F 65-76 18-20 103-149/76-108 92-99 General appearance: normal weight, no acute distress - Head Head exam: Present: normal inspection, normocephalic, atraumatic - Eye Eye exam: Present: EOMI Pupils: Present: JOHNNIE - ENT ENT exam: Present: normal exam - Neck Neck exam: Present: normal inspection - Respiratory Respiratory exam: Present: clear to auscultation bilaterally - Cardiovascular Cardiovascular exam: Present: regular rate and rhythm - GI/Abdominal GI/Abdominal exam: Present: normal bowel sounds - Extremities Exam Extremities exam: Present: normal inspection Discharge Results Procedures and tests throughout hospitalization: Pending Orders 02/23/16 06:51 CL heart Routine Labs on day of discharge: Labs from last 24 hours 02/23/16 02/23/16 05:02 05:02 WBC 7.2 RBC 4.69 Hgb 13.8 L Hct 42.1 MCV 89.8 MCH 29 MCHC 32.8 RDW 13.2 Plt Count 281 MPV 9.7 Neut % (Auto) 33.1 L Lymph % (Auto) 55.2 H [place] % (Auto) 7.6 Eos % (Auto) 3.2 Baso % (Auto) 0.6 Neut # (Auto) 2.4 Lymph # (Auto) 4.0 [place] # (Auto) 0.6 Eos # (Auto) 0.2 Baso # (Auto) 0.0 Total Counted 100 Immature Gran % 0.3 Nucleated RBC % 0.0 Immature Gran # 0.02 Segmented Neutrophils 32 L Lymphocytes 59 H Monocytes 7 Eosinophils 2 Nucleated RBCs # 0.00 Platelet Estimate Normal Hypochromasia 1+ Sodium 144 Potassium 4.1 Chloride 110 H Carbon Dioxide 24 Anion Gap 14.1 BUN 9 Creatinine 0.80 GFR Calculation 121 BUN/Creatinine Ratio 11.00 Glucose 97 Calculated Osmolality 284.8 Calcium 9.1 DS: Provider Date of admission: 02/20/16 12:44 Primary care physician: . No PCP Attending physician on admission: Sabrina Dobson MD Consults: 02/20/16 12:45 Consult to Physician [CONS] Routine Comment: new onset AFIB Consulting Provider: Consult to Specialist Group: Cardiology When should Consulting Provider be notified: Now Person Notified: DR. KWAN Date Notified: 02/20/16 Time Notified: 17:00 Consult Notification Comment: DR. KWAN STATED HE OR DR. LEON WOULD SEE THE PT 02/20/16 12:54 Consult to Pharmacy [CONS] Routine Reason for Pharmacy Consult: Adjust Meds Renal Funct 02/20/16 15:49 Consult to Pastoral Services [CONS] Routine Comment: Pastoral Screen: Request [facility] Visit Discharging clinician: Sabrina Dobson MD Expected date of discharge: 02/23/16
[2016-02-23 14:07] VITALS: BP 140/90
== END 2016-02-23 14:41 | disposition home or self-care (01) | DRG 287 ==
LOC: EDUNIT# → EDBD → N.ED 10:35 → N.EDINP 13:55 → N.TELEN 15:54
PROVIDERS: ADMIT Internal Medicine; ATTEND Internal Medicine
PROC: CLCCHCL (ICD-10-PCS; 2016-02-23 10:45)

== ENCOUNTER 2018-02-15 17:19 | Inpatient (IN) ==
[~2018-02-15 17:19] MED LIST: ENOXAPARIN 60 MG/0.6 ML SYRINGE ONE; HEPARIN/NACL 0.9% 2 UNITS/ML 1,000 ML IV ONE; LIDOCAINE 1% 20 ML VIAL ONE; MIDAZOLAM 2 MG/2 ML VIAL ONE; fentaNYL 100 MCG/2 ML VIAL ONE; hydrALAZINE 20 MG/1 ML VIAL ONE
[2018-02-15] MEDS ORDERED: MAGNESIUM SULF RIDER 2 GM in PREMIX 1 EACH IV PRN (17:31)
[2018-02-15] MEDS ORDERED: ZALEPLON 5 MG CAPSULE PO PRN (17:31)
[2018-02-15] MEDS ORDERED: MAGNESIUM SULF RIDER 4 GM in PREMIX 1 EACH IV PRN (17:31)
[2018-02-15] MEDS ORDERED: ONDANSETRON 4 MG/2 ML VIAL IV PRN (17:31)
[2018-02-15] MEDS ORDERED: ACETAMINOPHEN 325 MG TABLET PO PRN (17:31)
[2018-02-15 17:32] LABS: Basophils # 0.1 10*3/uL (0.0-0.2); Basophils % 0.8 % (0.0-0.8); Eosinophils # 0.3 10*3/uL (0.0-0.87); Eosinophils % 4.3 % (0.00-10.9); Hematocrit 38.3 VOL% (42.0-52.0); Hemoglobin 12.7 GM/DL (14.0-18.0); Immature Granulocytes % 0.2 %; Immature Granulocytes Absolute 0.01 #; Lymphocytes # 3.6 10*3/uL (1.4-4.0); Lymphocytes % 57.1 % (21.2-54.2); Mean Corpuscular HGB Conc 33.2 GM/DL (32-36); Mean Corpuscular Hemoglobin 30 PG (27-34); Mean Corpuscular Volume 89.7 FL (87-102); Mean Platelet Volume 9.3 FL (9.6-12.0); Monocytes # 0.5 10*3/uL (0.11-0.8); Monocytes % 7.3 % (1.7-12.7); Neutrophils # 1.9 10*3/uL (1.4-7.4); Neutrophils % 30.3 % (38.7-73.9); Platelet Count 275 T/CUMM (130-400); Red Blood Count 4.27 MC/CUMM (3.8-5.5); Red Cell Distribution Width 13.5 % (9.3-17.3); White Blood Count 6.3 T/CUMM (4-12)
[2018-02-15] MEDS ORDERED: CLOPIDOGREL 300 MG TABLET PO ONE (17:33)
[2018-02-15] MEDS ORDERED: hydrALAZINE 20 MG/1 ML VIAL IV PRN (17:33)
[2018-02-15] MEDS ORDERED: chlordiazePOXIDE 25 MG CAPSULE PO PRN (17:35)
[2018-02-15 17:42] LABS: PT Patient Result 10.7 SECS; Partial Thromboplastin Time 38.5 SECS (0-40)
[2018-02-15] MEDS ORDERED: NITROGLYCERIN DRIP 50 MG/250 ML BOTTLE IV PRN (17:42)
[2018-02-15] MEDS ORDERED: MORPHINE 4 MG/1 ML VIAL IV PRN (17:43)
[2018-02-15] MEDS ORDERED: CLOPIDOGREL 300 MG TABLET ONE (17:47)
[2018-02-15 17:54] LABS: Osmolality,Calculated 270.8 MOS/KG (273-304); Potassium 3.1 MMOL/L (3.5-5.1)
[2018-02-15 17:58] LABS: Risk Ratio 4.91; VLDL CHOLESTEROL 47.6 MG/DL
[2018-02-15 18:18] LABS: Band Neutrophils 3 % (0-10); Eosinophils 4 % (0-10); Lymphocytes 50 % (20-55); Platelet Estimate Normal; Segmented Neutrophils 36 % (50-85); Total Cells Counted 100; Troponin I 0.143 NG/ML (0.00-0.045)
[2018-02-15 18:22] LABS: Giant Platelets Few
[2018-02-15] MEDS: SODIUM CHLORIDE 0.9% 1,000 ML IV SCH (18:30)
[2018-02-15 19:06] LABS: Hepatitis A Ab IgM Quant 0.24 Index; Hepatitis A Ab IgM Result Negative (Negative); Hepatitis B Core IgM Quant 0.07 Index; Hepatitis B Core IgM Result Negative (Negative); Hepatitis B Surface Ag Quant < 0.10 Index; Hepatitis B Surface Ag Result Negative (Negative); Hepatitis C Virus Ab Quant < 0.02 Index; Hepatitis C Virus Ab Result Negative (Negative)
[2018-02-15 19:44] LABS: Free T4 (Free Thyroxine) 1.08 NG/DL (0.76-1.46); Thyroid Stimulating Hormone 0.918 uIU/ml (0.358-3.74)
[2018-02-15] MEDS: CARVEDILOL 6.25 MG TABLET PO SCH (21:43)
[2018-02-15] MEDS: ATORVASTATIN 80 MG TABLET PO SCH (21:43)
[2018-02-16] MEDS: SODIUM CHLORIDE 0.9% 1,000 ML IV SCH ×2 (01:54→10:01)
[2018-02-16 05:56] LABS: Basophils % 0.5 % (0.0-0.8); Eosinophils # 0.2 10*3/uL (0.0-0.87); Eosinophils % 2.9 % (0.00-10.9); Hematocrit 40.8 VOL% (42.0-52.0); Hemoglobin 13.6 GM/DL (14.0-18.0); Immature Granulocytes % 0.3 %; Immature Granulocytes Absolute 0.02 #; Lymphocytes # 2.9 10*3/uL (1.4-4.0); Lymphocytes % 44.9 % (21.2-54.2); Mean Corpuscular HGB Conc 33.3 GM/DL (32-36); Mean Corpuscular Hemoglobin 29 PG (27-34); Mean Corpuscular Volume 88.3 FL (87-102); Mean Platelet Volume 9.6 FL (9.6-12.0); Monocytes # 0.6 10*3/uL (0.11-0.8); Monocytes % 9.1 % (1.7-12.7); Neutrophils # 2.7 10*3/uL (1.4-7.4); Neutrophils % 42.3 % (38.7-73.9); Platelet Count 284 T/CUMM (130-400); Red Blood Count 4.62 MC/CUMM (3.8-5.5); Red Cell Distribution Width 13.4 % (9.3-17.3); White Blood Count 6.5 T/CUMM (4-12)
[2018-02-16 06:13] LABS: Osmolality,Calculated 271.7 MOS/KG (273-304); Potassium 3.5 MMOL/L (3.5-5.1)
[2018-02-16 06:24] LABS: Calcium 8.2 MG/DL (8.5-10.1); Osmolality,Calculated 272.5 MOS/KG (273-304); Potassium 3.5 MMOL/L (3.5-5.1)
[2018-02-16] MEDS ORDERED: LOSARTAN 25 MG TABLET PO SCH (09:00)
[2018-02-16] MEDS: PANTOPRAZOLE 40 MG TABLET PO SCH (10:03)
[2018-02-16] MEDS: ASPIRIN EC 81 MG TABLET PO SCH (10:03)
[2018-02-16] MEDS: NICOTINE 21 MG/24 HR PATCH TRANSDERM SCH (10:03)
[2018-02-16] MEDS: CARVEDILOL 6.25 MG TABLET PO SCH (10:03)
[2018-02-16] MEDS: CLOPIDOGREL 75 MG TABLET PO SCH (10:03)
[2018-02-16 11:35] LABS: Basophils # 0.1 10*3/uL (0.0-0.2); Basophils % 0.7 % (0.0-0.8); Eosinophils # 0.2 10*3/uL (0.0-0.87); Eosinophils % 2.5 % (0.00-10.9); Hematocrit 41.2 VOL% (42.0-52.0); Hemoglobin 13.5 GM/DL (14.0-18.0); Immature Granulocytes % 0.3 %; Immature Granulocytes Absolute 0.02 #; Lymphocytes # 3.1 10*3/uL (1.4-4.0); Lymphocytes % 41.5 % (21.2-54.2); Mean Corpuscular HGB Conc 32.8 GM/DL (32-36); Mean Corpuscular Hemoglobin 29 PG (27-34); Mean Platelet Volume 9.5 FL (9.6-12.0); Monocytes # 0.8 10*3/uL (0.11-0.8); Monocytes % 10.2 % (1.7-12.7); Neutrophils # 3.4 10*3/uL (1.4-7.4); Neutrophils % 44.8 % (38.7-73.9); Platelet Count 277 T/CUMM (130-400); Red Blood Count 4.63 MC/CUMM (3.8-5.5); Red Cell Distribution Width 13.4 % (9.3-17.3); White Blood Count 7.6 T/CUMM (4-12)
[2018-02-16] MEDS: LOSARTAN 50 MG TABLET PO SCH (16:59)
[2018-02-16] MEDS: ATORVASTATIN 80 MG TABLET PO SCH (20:48)
[2018-02-16] MEDS: CARVEDILOL 12.5 MG TABLET PO SCH (20:48)
[2018-02-17 03:35] LABS: Basophils % 0.5 % (0.0-0.8); Eosinophils # 0.2 10*3/uL (0.0-0.87); Eosinophils % 3.2 % (0.00-10.9); Hematocrit 41.3 VOL% (42.0-52.0); Hemoglobin 13.8 GM/DL (14.0-18.0); Immature Granulocytes % 0.2 %; Immature Granulocytes Absolute 0.01 #; Lymphocytes # 2.8 10*3/uL (1.4-4.0); Lymphocytes % 44.9 % (21.2-54.2); Mean Corpuscular HGB Conc 33.4 GM/DL (32-36); Mean Corpuscular Hemoglobin 29 PG (27-34); Mean Corpuscular Volume 87.5 FL (87-102); Mean Platelet Volume 9.6 FL (9.6-12.0); Monocytes # 0.6 10*3/uL (0.11-0.8); Monocytes % 9.4 % (1.7-12.7); Neutrophils # 2.6 10*3/uL (1.4-7.4); Neutrophils % 41.8 % (38.7-73.9); Platelet Count 278 T/CUMM (130-400); Red Blood Count 4.72 MC/CUMM (3.8-5.5); Red Cell Distribution Width 13.2 % (9.3-17.3); White Blood Count 6.2 T/CUMM (4-12)
[2018-02-17 04:05] LABS: Calcium 8.3 MG/DL (8.5-10.1); Osmolality,Calculated 272.7 MOS/KG (273-304); Potassium 3.3 MMOL/L (3.5-5.1)
[2018-02-17] MEDS ORDERED: POTASSIUM CHLORIDE RIDER 10 MEQ in PREMIX 1 EACH IV PRN (07:24)
[2018-02-17] MEDS ORDERED: POTASSIUM CHLORIDE 20 MEQ TABLET PO PRN (07:27)
[2018-02-17 08:01] VITALS: BP 153/97
[2018-02-17] MEDS: ASPIRIN EC 81 MG TABLET PO SCH (08:47)
[2018-02-17] MEDS: LOSARTAN 50 MG TABLET PO SCH (08:47)
[2018-02-17] MEDS: CARVEDILOL 12.5 MG TABLET PO SCH (08:48)
[2018-02-17] MEDS: NICOTINE 21 MG/24 HR PATCH TRANSDERM SCH (08:48)
[2018-02-17] MEDS: PANTOPRAZOLE 40 MG TABLET PO SCH (08:49)
[2018-02-17] MEDS: CLOPIDOGREL 75 MG TABLET PO SCH (08:49)
== END 2018-02-17 12:40 | disposition home or self-care (01) | DRG 282 ==
LOC: N.CL 17:19 → N.CC 18:15 → N.TELES 02-16 17:35
PROVIDERS: ADMIT Internal Medicine Cardiovascular Disease; ATTEND Internal Medicine Cardiovascular Disease
PROC: CLCCHCL (ICD-10-PCS; 2018-02-15 17:15)

== ENCOUNTER 2019-09-14 09:32 | Inpatient (IN) ==
[2019-09-14 10:14] LABS: Basophils % 0.6 % (0.0-0.8); Eosinophils % 0.4 % (0.00-10.9); Hematocrit 47.2 VOL% (42.0-52.0); Hemoglobin 15.5 GM/DL (14.0-18.0); Immature Granulocytes % 0.4 %; Immature Granulocytes Absolute 0.02 #; Lymphocytes # 2.6 10*3/uL (1.4-4.0); Lymphocytes % 54.7 % (21.2-54.2); Mean Corpuscular HGB Conc 32.8 GM/DL (32-36); Mean Corpuscular Volume 91.3 FL (87-102); Mean Platelet Volume 10.7 FL (9.6-12.0); Monocytes % 10.2 % (1.7-12.7); NRBC # 0.04 10*3/uL; Neutrophils % 33.7 % (38.7-73.9); Platelet Count 247 T/CUMM (130-400); Red Blood Count 5.17 MC/CUMM (3.8-5.5); Red Cell Distribution Width 13.7 % (9.3-17.3); White Blood Count 4.8 T/CUMM (4-12)
[2019-09-14] MEDS ORDERED: SODIUM CHLORIDE 0.9% 500 ML IV STA (10:22)
[2019-09-14 10:23] LABS: PT Patient Result 10.7 SECS (9.8-11.9)
[2019-09-14 10:25] LABS: Alanine Aminotransferase 188 U/L (16-61); Albumin 4.2 G/DL (3.4-5.0); Alkaline Phosphatase 119 U/L (45-117); Aspartate Amino Transferase 288 U/L (0-37); Blood Urea Nitrogen 17 MG/DL (7-18); Calcium 9.4 MG/DL (8.5-10.1); Estimated Glom Filtration Rate 48 ML/MIN; Glucose 125 MG/DL (74-106); Osmolality,Calculated 270.2 MOS/KG (273-304); Total Protein 7.9 G/DL (6.4-8.3)
[2019-09-14 11:03] LABS: Ferritin 1493.4 ng/ml (26-388)
[2019-09-14 12:00] LABS: Band Neutrophils 1 % (0-10); Lymphocytes 60 % (20-55); Segmented Neutrophils 29 % (50-85); Total Cells Counted 100
[2019-09-14 12:01] LABS: Atypical Lymphocytes Few; Burr Cells Few; Ovalocytes Few; Platelet Estimate Normal; Polychromasia Slight
[2019-09-14] MEDS ORDERED: HEPARIN 5,000 UNIT/1 ML VIAL SUBCUT STA (12:50)
[2019-09-14] MEDS ORDERED: ONDANSETRON 4 MG/2 ML VIAL IV PRN (13:21)
[2019-09-14] MEDS ORDERED: DOCUSATE SODIUM 100 MG CAPSULE PO PRN (13:21)
[2019-09-14] MEDS ORDERED: ALUMINUM/MAGNES/SIMETH MAX STR 30 ML UDCUP PO PRN (13:21)
[2019-09-14] MEDS ORDERED: MORPHINE 4 MG/1 ML VIAL IV PRN (13:21)
[2019-09-14] MEDS ORDERED: GLUCAGON 1 MG VIAL IM PRN (13:21)
[2019-09-14] MEDS ORDERED: hydrALAZINE 20 MG/1 ML VIAL IV PRN (13:21)
[2019-09-14] MEDS ORDERED: LACTULOSE 20 GM/30 ML UDCUP PO PRN (13:21)
[2019-09-14] MEDS ORDERED: guaiFENesin/DM ER 600-30 MG TABLET PO PRN (13:21)
[2019-09-14] MEDS ORDERED: NICOTINE 21 MG/24 HR PATCH TRANSDERM PRN (13:21)
[2019-09-14] MEDS ORDERED: ACETAMINOPHEN 325 MG TABLET PO PRN (13:21)
[2019-09-14] MEDS ORDERED: BISACODYL 5 MG TABLET PO PRN (13:21)
[2019-09-14] MEDS ORDERED: diphenhydrAMINE CAP 25 MG CAPSULE PO PRN (13:21)
[2019-09-14] MEDS ORDERED: DEXTROSE 50% 25 GM/50 ML VIAL IV PRN (13:21)
[2019-09-14 13:43] LABS: Barbiturates Screen,Urine Negative (Negative); Benzodiazepines Screen,Urine Negative (Negative); Cannabinoid Screen,Urine Positive (Negative); Opiate Screen,Urine Negative (Negative); Phencyclidine Screen,Urine Negative (Negative)
[2019-09-14] MEDS: HEPARIN 5,000 UNIT/1 ML VIAL SUBCUT SCH ×2 (15:32→20:44)
[2019-09-14] MEDS: ASPIRIN EC 81 MG TABLET PO SCH (15:33)
[2019-09-14] MEDS ORDERED: LORazepam 2 MG/1 ML VIAL IV ONE (16:00)
[2019-09-14 16:59] LABS: Troponin I 0.037 NG/ML (0.00-0.045)
[2019-09-14 18:07] LABS: Apearance,Urine Slightly Hazy (Clear); Bilirubin,Urine Negative (Negative); Blood, Urine Negative (Negative); Glucose,Urine (UA) Negative (Negative); Hyaline Casts,Urine 1 /LPF (0-3); Ketones,Urine Negative (Negative); Mucus,Urine Occasional /LPF (Occasional); Nitrite,Urine Negative (Negative); Protein,Urine Negative; Squamous Epithelial Cell,Urine Occasional /HPF (0-10); Urine Color Yellow (Yellow); Urine Specific Gravity 1.015 (1.001-1.035); Urine Urobilinogen < 2.0 EU/DL (0.2-1.0); WBC,Urine <1 /HPF (0-6)
[2019-09-14 20:34] LABS: Troponin I 0.038 NG/ML (0.00-0.045)
[2019-09-14] MEDS: AMIODARONE 200 MG TABLET PO SCH (20:44)
[2019-09-14] MEDS: TAMSULOSIN 0.4 MG CAPSULE PO SCH (20:44)
[2019-09-14] MEDS: chlordiazePOXIDE 25 MG CAPSULE PO PRN (20:44)
[2019-09-14] MEDS ORDERED: ATORVASTATIN 40 MG TABLET PO SCH (21:00)
[2019-09-15] MEDS: HEPARIN 5,000 UNIT/1 ML VIAL SUBCUT SCH (04:41)
[2019-09-15 06:25] LABS: Basophils % 0.4 % (0.0-0.8); Eosinophils % 0.6 % (0.00-10.9); Hematocrit 40.6 VOL% (42.0-52.0); Hemoglobin 13.8 GM/DL (14.0-18.0); Immature Granulocytes % 0.6 %; Immature Granulocytes Absolute 0.03 #; Lymphocytes # 2.8 10*3/uL (1.4-4.0); Mean Corpuscular Volume 88.5 FL (87-102); Mean Platelet Volume 11.2 FL (9.6-12.0); Monocytes % 10.4 % (1.7-12.7); Platelet Count 194 T/CUMM (130-400); Red Blood Count 4.59 MC/CUMM (3.8-5.5); Red Cell Distribution Width 13.7 % (9.3-17.3); White Blood Count 5.4 T/CUMM (4-12)
[2019-09-15 06:49] LABS: Albumin 3.5 G/DL (3.4-5.0); Bilirubin,Total 1.8 MG/DL (0.2-1.0); Calcium 8.7 MG/DL (8.5-10.1); Ferritin 1155.6 ng/ml (26-388); Total Protein 7.3 G/DL (6.4-8.3)
[2019-09-15 06:50] LABS: Atypical Lymphocytes Few; Eosinophils 2 % (0-10); Lymphocytes 57 % (20-55); Segmented Neutrophils 37 % (50-85); Total Cells Counted 100
[2019-09-15 06:51] LABS: Hypochromasia 1+; Microcytosis Slight; Target Cells Slight
[2019-09-15 06:52] LABS: Ovalocytes Slight; Platelet Estimate Adequate
[2019-09-15 07:20] LABS: Risk Ratio 2.68; Thyroid Stimulating Hormone 3.21 uIU/ml (0.358-3.74); VLDL CHOLESTEROL 15.6 MG/DL
[2019-09-15 08:20] LABS: Sedimentation Rate-Westergren 30 MM/HR (0-20)
[2019-09-15 08:50] LABS: Hepatitis B Core IgM Quant 0.13 Index; Hepatitis B Surface Ag Quant < 0.10 Index; Hepatitis B Surface Ag Result Negative (Negative); Hepatitis C Virus Ab Quant 0.03 Index; Hepatitis C Virus Ab Result Negative (Negative)
[2019-09-15] MEDS: MULTIVITAMIN (CENTRUM) TABLET PO SCH (08:56)
[2019-09-15] MEDS: chlordiazePOXIDE 25 MG CAPSULE PO PRN (08:56)
[2019-09-15] MEDS: THIAMINE 100 MG TABLET PO SCH (08:57)
[2019-09-15] MEDS: AMIODARONE 200 MG TABLET PO SCH ×2 (08:57→21:05)
[2019-09-15] MEDS: POTASSIUM CHLORIDE 20 MEQ TABLET PO PRN ×5 (08:57→21:06)
[2019-09-15] MEDS: FOLIC ACID 1 MG TABLET PO SCH (08:57)
[2019-09-15] MEDS: APIXABAN 5 MG TABLET PO SCH ×2 (08:57→21:06)
[2019-09-15] MEDS: ASPIRIN EC 81 MG TABLET PO SCH (08:57)
[2019-09-15] MEDS ORDERED: METOPROLOL SUCCINATE XL 100 MG TABLET PO SCH (09:00)
[2019-09-15] MEDS ORDERED: CLOPIDOGREL 75 MG TABLET PO SCH (09:00)
[2019-09-15] MEDS: chlordiazePOXIDE 25 MG CAPSULE PO SCH ×3 (09:15→21:05)
[2019-09-15] MEDS ORDERED: METOPROLOL SUCCINATE XL 50 MG TABLET PO ONE (11:30)
[2019-09-15] MEDS ORDERED: MAGNESIUM SULF RIDER 1 GM in PREMIX 1 EACH IV ONE (21:00)
[2019-09-15] MEDS: TAMSULOSIN 0.4 MG CAPSULE PO SCH (21:06)
[2019-09-15] MEDS ORDERED: MAGNESIUM SULF RIDER 4 GM in PREMIX 1 EACH IV PRN (22:38)
[2019-09-16] MEDS: MAGNESIUM SULF RIDER 2 GM in PREMIX 1 EACH IV PRN (00:08)
[2019-09-16] MEDS: POTASSIUM CHLORIDE 20 MEQ TABLET PO PRN ×2 (00:08→02:04)
[2019-09-16] MEDS: chlordiazePOXIDE 25 MG CAPSULE PO SCH ×4 (02:04→20:48)
[2019-09-16 06:42] LABS: Basophils % 0.4 % (0.0-0.8); Eosinophils % 0.8 % (0.00-10.9); Hematocrit 41.5 VOL% (42.0-52.0); Hemoglobin 13.7 GM/DL (14.0-18.0); Immature Granulocytes % 0.2 %; Immature Granulocytes Absolute 0.01 #; Lymphocytes # 2.5 10*3/uL (1.4-4.0); Lymphocytes % 48.4 % (21.2-54.2); Mean Corpuscular Volume 90.8 FL (87-102); Monocytes % 10.9 % (1.7-12.7); Neutrophils % 39.3 % (38.7-73.9); Platelet Count 207 T/CUMM (130-400); Red Blood Count 4.57 MC/CUMM (3.8-5.5); Red Cell Distribution Width 13.8 % (9.3-17.3); White Blood Count 5.2 T/CUMM (4-12)
[2019-09-16 07:08] LABS: Albumin 3.4 G/DL (3.4-5.0); Bilirubin,Total 1.1 MG/DL (0.2-1.0); Calcium 8.8 MG/DL (8.5-10.1); Ferritin 864.5 ng/ml (26-388); Osmolality,Calculated 268.2 MOS/KG (273-304); Total Protein 7.4 G/DL (6.4-8.3)
[2019-09-16] MEDS: APIXABAN 5 MG TABLET PO SCH ×2 (08:41→20:48)
[2019-09-16] MEDS: THIAMINE 100 MG TABLET PO SCH (08:42)
[2019-09-16] MEDS: METOPROLOL SUCCINATE XL 100 MG TABLET PO SCH (08:42)
[2019-09-16] MEDS: FOLIC ACID 1 MG TABLET PO SCH (08:42)
[2019-09-16] MEDS: MULTIVITAMIN (CENTRUM) TABLET PO SCH (08:43)
[2019-09-16] MEDS: AMIODARONE 200 MG TABLET PO SCH ×2 (08:43→20:48)
[2019-09-16] MEDS: ASPIRIN EC 81 MG TABLET PO SCH (08:43)
[2019-09-16 09:21] LABS: Sedimentation Rate-Westergren 36 MM/HR (0-20)
[2019-09-16] MEDS: TAMSULOSIN 0.4 MG CAPSULE PO SCH (20:48)
[2019-09-17] MEDS: chlordiazePOXIDE 25 MG CAPSULE PO SCH ×4 (04:42→21:41)
[2019-09-17 06:58] LABS: Basophils % 0.5 % (0.0-0.8); Eosinophils % 0.7 % (0.00-10.9); Hematocrit 38.6 VOL% (42.0-52.0); Hemoglobin 12.6 GM/DL (14.0-18.0); Immature Granulocytes % 0.4 %; Immature Granulocytes Absolute 0.02 #; Lymphocytes # 2.2 10*3/uL (1.4-4.0); Lymphocytes % 38.4 % (21.2-54.2); Mean Corpuscular HGB Conc 32.6 GM/DL (32-36); Mean Corpuscular Volume 92.6 FL (87-102); Mean Platelet Volume 10.7 FL (9.6-12.0); Monocytes % 9.3 % (1.7-12.7); Neutrophils % 50.7 % (38.7-73.9); Platelet Count 180 T/CUMM (130-400); Red Blood Count 4.17 MC/CUMM (3.8-5.5); Red Cell Distribution Width 13.8 % (9.3-17.3); White Blood Count 5.7 T/CUMM (4-12)
[2019-09-17 07:29] LABS: % Iron Saturation 10.6 % (18-50)
[2019-09-17 07:43] LABS: Albumin 3.2 G/DL (3.4-5.0); Calcium 8.8 MG/DL (8.5-10.1); Osmolality,Calculated 272.8 MOS/KG (273-304); Total Protein 6.7 G/DL (6.4-8.3)
[2019-09-17] MEDS: MAGNESIUM SULF RIDER 2 GM in PREMIX 1 EACH IV PRN (09:59)
[2019-09-17 11:04] LABS: Sedimentation Rate-Westergren 50 MM/HR (0-20)
[2019-09-17] MEDS ORDERED: MAGNESIUM SULF RIDER 2 GM in PREMIX 1 EACH IV ONE (12:00)
[2019-09-17] MEDS: MULTIVITAMIN (CENTRUM) TABLET PO SCH (14:56)
[2019-09-17] MEDS: METOPROLOL SUCCINATE XL 100 MG TABLET PO SCH (14:56)
[2019-09-17] MEDS: THIAMINE 100 MG TABLET PO SCH (14:57)
[2019-09-17] MEDS: FOLIC ACID 1 MG TABLET PO SCH (14:57)
[2019-09-17] MEDS: AMIODARONE 200 MG TABLET PO SCH ×2 (14:58→21:41)
[2019-09-17] MEDS: APIXABAN 5 MG TABLET PO SCH ×2 (14:58→21:42)
[2019-09-17] MEDS: ASCORBIC ACID 500 MG TABLET PO SCH ×2 (14:58→21:42)
[2019-09-17] MEDS: ASPIRIN EC 81 MG TABLET PO SCH (14:59)
[2019-09-17] MEDS: TAMSULOSIN 0.4 MG CAPSULE PO SCH (21:42)
[2019-09-18] MEDS: chlordiazePOXIDE 25 MG CAPSULE PO SCH ×2 (03:36→08:33)
[2019-09-18 06:51] LABS: Basophils % 0.4 % (0.0-0.8); Eosinophils % 0.1 % (0.00-10.9); Hematocrit 40.7 VOL% (42.0-52.0); Hemoglobin 13.5 GM/DL (14.0-18.0); Immature Granulocytes % 0.3 %; Immature Granulocytes Absolute 0.02 #; Lymphocytes # 3.1 10*3/uL (1.4-4.0); Lymphocytes % 41.9 % (21.2-54.2); Mean Corpuscular HGB Conc 33.2 GM/DL (32-36); Mean Corpuscular Volume 91.5 FL (87-102); Mean Platelet Volume 10.8 FL (9.6-12.0); Monocytes % 7.4 % (1.7-12.7); Neutrophils % 49.9 % (38.7-73.9); Platelet Count 214 T/CUMM (130-400); Red Blood Count 4.45 MC/CUMM (3.8-5.5); Red Cell Distribution Width 13.8 % (9.3-17.3); White Blood Count 7.3 T/CUMM (4-12)
[2019-09-18 06:59] LABS: Albumin 3.5 G/DL (3.4-5.0); Bilirubin,Total 1.3 MG/DL (0.2-1.0); Calcium 9.1 MG/DL (8.5-10.1); Total Protein 7.9 G/DL (6.4-8.3)
[2019-09-18 08:31] VITALS: BP 116/86
[2019-09-18] MEDS: AMIODARONE 200 MG TABLET PO SCH (08:32)
[2019-09-18] MEDS: ASCORBIC ACID 500 MG TABLET PO SCH (08:32)
[2019-09-18] MEDS: THIAMINE 100 MG TABLET PO SCH (08:32)
[2019-09-18] MEDS: FOLIC ACID 1 MG TABLET PO SCH (08:32)
[2019-09-18] MEDS: MULTIVITAMIN (CENTRUM) TABLET PO SCH (08:32)
[2019-09-18] MEDS: APIXABAN 5 MG TABLET PO SCH (08:32)
[2019-09-18] MEDS: ASPIRIN EC 81 MG TABLET PO SCH (08:33)
[2019-09-18] MEDS: METOPROLOL SUCCINATE XL 100 MG TABLET PO SCH (08:33)
[2019-09-18 10:03] LABS: Sedimentation Rate-Westergren 51 MM/HR (0-20)
[2019-09-22] MEDS ORDERED: APIXABAN 5 MG TABLET PO SCH (09:00)
== END 2019-09-18 11:23 | disposition home or self-care (01) | DRG 178 ==
LOC: N.EDINP 09:32 → N.ED 09:32 → N.2E 14:17 → SUATTDRO 09-15 15:09
PROVIDERS: ADMIT Hospitalist; ATTEND Family Medicine